=== PATIENT | male | born 1990 | race Caucasian/White ===

== ENCOUNTER 2021-09-05 19:38 | Observation (INO) | payer OTHER ==
[2021-09-05 19:46] VITALS: BMI 25.7
[2021-09-05] MEDS ORDERED: SODIUM CHLORIDE 1,000 ML IV STA ×2 (19:47→20:49)
[2021-09-05 22:05] LABS: ALBUMIN 3.9 g/dl (3.4-5.0); BILIRUBIN,TOTAL 1.2 mg/dl (0.2-1); CALCIUM 8.6 mg/dl (8.5-10); CREATININE 0.9 mg/dl (0.55-1.3); TOT PROT 6.4 g/dl (6.4-8.2)
[2021-09-06 00:37] LABS: SARS AG REFLEX COV19 SEND OUT negative (Negative)
[2021-09-06] MEDS ORDERED: SODIUM CHLORIDE 1,000 ML IV SCH (01:30)
[2021-09-06 08:13] LABS: ALBUMIN 3.9 g/dl (3.4-5.0); BILIRUBIN,TOTAL 1.4 mg/dl (0.2-1); CALCIUM 9.1 mg/dl (8.5-10); CREATININE 0.9 mg/dl (0.55-1.3); TOT PROT 6.5 g/dl (6.4-8.2)
[2021-09-06 08:57] LABS: BASO % 0.6 % (0-2.0); EOS % 3.5 % (0-4.5); HEMATOCRIT 38.8 % (35.4-49); LYMPH % 29.9 % (8-40); MCH 30.8 pg (25.7-33.7); MCHC 33.4 g/dl (32.0-35.9); MEAN PLT VOLUME 7.7 fl (7.5-11.1); MONO % 11.5 % (3.8-10.2); NEUT % 54.5 % (42.8-82.8); PLATELET COUNT 244 10^3/uL (134-434); RBC 4.22 M/mm3 (4.00-5.60); RDW 13.4 % (11.9-15.9); WHITE BLOOD COUNT 5.2 K/mm3 (4.0-10.0)
[2021-09-06 09:23] VITALS: BP 106/68; PULSE 67; TEMP 98.6
[2021-09-07 12:07] LABS: SARS-CoV-2 NAA Not Detected (Not Detected)
== END 2021-09-06 12:16 | disposition home or self-care (01) ==
LOC: FER 19:38 → FM/S 09-06 01:29
PROVIDERS: ADMIT Hospitalist; ATTEND Nurse Practitioner Acute Care
PROC: 3E0337Z Introduction of Electrolytic and Water Balance Substance into Peripheral Vein, Percutaneous Approach (ICD-10-PCS; principal; 2021-09-06)
DX: M62.82 Rhabdomyolysis (principal); X58.XXXA Exposure to other specified factors, initial encounter; Y93.89 Activity, other specified; Y92.89 Other specified places as the place of occurrence of the external cause; Y99.0 Civilian activity done for income or pay
CPT/HCPCS: 36415; 80053; 81003; 82550; 82553; 85025; 87426; 93005; 96360; 96361; 99285-25; C9803; G0378; U0003; U0005